=== PATIENT | female | born 1960 | race African-American/Black ===

== ENCOUNTER 2019-09-17 10:24 | Outpatient (CLI) | payer OTHER, SELFPAY ==
--- NOTE | ~2019-09-17 | DEXA_ITS ---
Bone Density Report Name: Fern Oliveira Age: 59 Sex: Female Ethnicity: White Date of : 1960 Indication: postmenopausal; height loss; hysterectomy; Referring Provider: NNAMDI MILLER Study: Bone densitometry was performed. Exam Date: September 17, 2019 Accession number: [id number] Bone Density: Region BMD T-score Z-score Classification AP Spine (L1-L4) 1.114 0.6 1.9 Normal Femoral Neck (Left) 0.870 0.2 1.4 Normal Total Hip (Left) 1.156 1.8 2.6 Normal Total Hip Bilateral Avg 1.171 1.9 2.7 Normal Femoral Neck (Right) 0.934 0.8 1.9 Normal Total Hip (Right) 1.184 2.0 2.8 Normal World Health Organization criteria for BMD impression classify patients as: Normal (T-score at or above -1.0), Osteopenia (T-score between -1.0 and -2.5), or Osteoporosis (T-score at or below -2.5). 10-year Fracture Risk: FRAX not reported because: All T-scores for Spine Total, Hip Total, Femoral Neck at or above -1.0 Previous Exams: Region Exam Age BMD T-score BMD Change BMD Change Date g/cm2 vs Baseline vs Previous AP Spine(L1-L4) 09/17/2019 59 1.114 0.6 0.012(1.1%) 0.012(1.1%) 09/06/2017 57 1.102 0.5 Total Hip(Left) 09/17/2019 59 1.156 1.8 -0.066(-5.4%)* -0.066(-5.4%)* 09/06/2017 57 1.222 2.3 Total Hip(Right) 09/17/2019 59 1.184 2.0 0.041(3.6%)* 0.041(3.6%)* 09/06/2017 57 1.143 1.6 *Denotes significance at 95% confidence level, LSC for AP Spine = 0.022 g/cm2, LSC for Total Hip = 0.027 g/cm2 Clinical Information Provided by Patient: Has used the following medications: Vitamin D Has the following medical conditions: Hysterectomy Patient maximum height was 64 Menopause Age: 47 No regular weight bearing exercise Drinks caffeinated beverages Onset of menses at age 14 Number of children 0 Impression: The patient has normal bone mass. The BMD for the Total Hip(Left) decreased, changing by -5.4% since the last DXA exam. Discussion: BONE DENSITY IS ABOVE THE MINIMUM DESIRABLE LEVEL AT ALL SKELETAL SITES TESTED. This patient?s bone mineral density is above the minimum desirable level (T-score -1.0 or better) at all sites measured. The patient should follow a healthful lifestyle (good nutrition with adequate calcium and vitamin D, and appropriate weight-bearing exercise). Follow-Up: Consider repeating this study in 3 to 4 years to reassess this patient's status, or sooner if there is some new clinical indication. Reported by:
--- NOTE | ~2019-09-17 | MM_ITS ---
EXAMINATION: MM screening [facility] BI w poli HISTORY: Screening mammogram TECHNIQUE: Craniocaudal and mediolateral oblique 3-D tomosynthesis images were obtained and synthetic 2-D images were generated. CAD analysis was submitted and interpreted. COMPARISON: 09/09/2018, 09/06/2017, 01/21/2015 BREAST PARENCHYMAL COMPOSITION: The breasts are almost entirely fatty. FINDINGS: There is a stable low-density mass in the anterior third of the slightly outer breast, cons idered benign given the lack of interval change. There is no evidence of suspicious mass, calcificati on, or architectural distortion to suggest malignancy in either breast. There has been no suspicious interval change. IMPRESSION: 1. No mammographic evidence of malignancy. 2. Recommend routine screening mammography in one year. BI-RADS Category 2: Benign finding(s). Reviewed, dictated and finalized at location A. OR PASTOR
== END 2019-09-17 10:25 | disposition home or self-care (01) ==
LOC: ANHIMG 10:28
PROVIDERS: PCP Family Medicine; Visit Provider Obstetrics & Gynecology
DX: Z12.31 Encounter for screening mammogram for malignant neoplasm of breast (principal); Z78.0 Asymptomatic menopausal state
CPT/HCPCS: 77063; 77067; 77080

== ENCOUNTER 2020-07-15 21:30 | Emergency (ER) | payer OTHER, SELFPAY ==
--- NOTE | ~2020-07-15 | XR_ITS ---
EXAMINATION: XR elbow LT min 3V DATE: 07/15/2020 22:15 INDICATION: Left elbow pain. TECHNIQUE: 4 views of left elbow were obtained. COMPARISON: None. FINDINGS: Bone alignment is normal. No fracture. Joint spaces are well maintained. There is no elbow joint effusion. IMPRESSION: 1. Normal left elbow. Reviewed, dictated and finalized at location A. AL WORK THERAPIST IMPRESSION: 1. Normal left elbow.
--- NOTE | ~2020-07-15 | XR_ITS ---
EXAMINATION: XR forearm LT 2V DATE: 07/15/2020 22:14 INDICATION: Left forearm pain. TECHNIQUE: 2 views of left forearm were obtained. COMPARISON: None. FINDINGS: Bone alignment is normal. No fracture. Joint spaces are well maintained. There is no elbow joint effusion. IMPRESSION: 1. Normal left forearm. Reviewed, dictated and finalized at location A. BREAKING MACHINE OPERATOR IMPRESSION: 1. Normal left forearm.
[2020-07-15 21:32] VITALS: BP 173/95; PULSE 97; RESP 18; TEMP 36.2; O2SAT 100
--- NOTE | 2020-07-15 21:39 | ED.EXTPRO ---
HPI - Extremity Problem General Chief complaint: Extremity Problem,Nontraumatic Stated complaint: pain on left arm Time Seen by Provider: 07/15/20 21:39 Source: patient Mode of arrival: ambulatory Limitations: no limitations History of Present Illness HPI Narrative: Patient is a 60-year-old female who presents for evaluation of swelling and pain in left upper extremity. Patient states she was sitting down when she suddenly felt a dull, aching pain in her left forearm, noticed there was swelling in the area right before her left elbow. Tender to palpation. No redness. There is mild bruising. Patient did not fall or injure it. No numbness or difficulty with movement. She denies any chest pain or shortness of breath. No fever or chills. No recent surgeries. Patient denies any history of blood clot. No recent infections. No recent long car or air travel, no recent surgeries. Patient is right-hand dominant. Related Data Home Medications Medication Instructions Recorded Confirmed No Home Medications 07/15/20 07/15/20 Allergies Allergy/AdvReac Type Severity Reaction Status Date / Time acetaminophen Allergy Mild RASH Verified 07/15/20 21:36 Review of Systems Review of Systems: Narrative: CONSTITUTIONAL: Denies fever, chills, or sweats. ENT: Denies rhinorrhea, congestion, sore throat, or otalgia. CARDIOVASCULAR: Denies chest pain, palpitations, or edema. RESPIRATORY: Denies cough or dyspnea. GASTROINTESTINAL: Denies abdominal pain, nausea, vomiting, or diarrhea. GENITOURINARY: Denies dysuria or hematuria. SKIN: Denies rash or itching. MUSCULOSKELETAL: Denies back pain, joint pain, reports left upper extremity pain, reports bruising just prior to the elbow NEUROLOGIC: Denies headache, numbness, or weakness. [facility] Past Medical History Medical History (Updated 07/15/20 @ 22:41 by Lori Carrasco MD) Arthritis Diverticulosis Elevated lipids Endometriosis Surgical History Surgical History H/O arthroscopy of knee H/O total hysterectomy History of breast biopsy History of knee surgery History of myomectomy Family History Family History Sibling Cerebrovascular accident Mother Family history of malignant neoplasm of bone Other Family history of malignant neoplasm of breast Social History Social History Smoking status: Never smoker Alcohol intake: current Exam Narrative: Exam Narrative: GENERAL: Awake, alert, conversant HEAD: Normocephalic, atraumatic. EYES: PERRLA and EOMI. ENT: Nares clear, no rhinorrhea or epistaxis. Mucous membranes moist. NECK: Supple. CHEST: No respiratory distress, breathing even and non labored HEART: Regular rate, sinus rhythm ABDOMEN:Non distended, non tender EXTREMITIES: Normal range of motion. No edema. Tenderness just proximal to the left elbow. No supracondylar tenderness. Radial pulse 2+. Intact sensation median, ulnar, radial nerve distribution. No ecchymoses. Small area of edema proximal to the left elbow. This is the tender location. No erythema. No abscess. No fluctuance. No wound. SKIN: Warm, dry, no rash. NEURO:No focal deficits. Alert and oriented x3 Course Vital Signs Vital signs: Vital Signs Temperature 36.2 C L 07/15/20 21:32 Pulse Rate 97 07/15/20 21:32 Respiratory Rate 18 07/15/20 21:32 Blood Pressure 173/95 H 07/15/20 21:32 Pulse Oximetry 100 07/15/20 21:32 Temperature 36.2 C L 07/15/20 21:32 Pulse Rate 88 07/15/20 22:55 Respiratory Rate 20 07/15/20 22:55 Blood Pressure 162/82 H 07/15/20 22:55 Pulse Oximetry 98 07/15/20 22:55 MDM - Extremity (Nontraumatic) MDM Narrative Medical decision making narrative: Patient presented for evaluation of left arm pain, patient does state that she appreciates a bump and swelling. She is not having
[2020-07-15 22:23] LABS: Basophils Percent Auto 0.3 % (0.2-1.2); Eosinophils Absolute Auto 0.4 K/mm3 (0-0.3); Eosinophils Percent Auto 4.9 % (0-4.4); Hematocrit 39.2 % (37.0-47.0); Hemoglobin 12.8 g/dL (12.0-15.0); Immature Granulocyte Absolute 0.02 K/mm3 (0.00-0.031); Immature Granulocyte Percent A 0.3 % (0-0.5); Lymphocytes Absolute Auto 2.33 K/mm3 (0.9-3.2); Lymphocytes Percent Auto 29.2 % (18.3-44.2); Mean Corpuscular HGB Conc 32.7 g/dl (32-36); Mean Corpuscular Hemoglobin 27.8 pg (26-34); Mean Corpuscular Volume 85.2 fl (80-100); Mean Platelet Volume 9.3 fl (7.4-10.4); Monocytes Absolute Auto 0.7 K/mm3 (0.1-0.6); Monocytes Percent Auto 8.3 % (2.6-8.5); Neutrophils Absolute Auto 4.6 K/mm3 (1.3-6.7); Platelet Count Result 284 k/mm3 (150-375); Red Cell Distribution Width 13.5 % (11.5-14.5)
[2020-07-15 22:36] LABS: Anion Gap 8 mmol/L (8-16); Blood Urea Nitrogen 18 mg/dL (7-17); Carbon Dioxide 30 mmol/L (22-30); Chloride 103 mmol/L (98-107); D Dimer 0.44 ug/mL (<0.48); Estimated CRCL calculation 76 ml/min; Estimated Glomerular Filt Rate > 60; Glucose 112 mg/dL (65-105); Sodium 141 mmol/L (137-145)
[2020-07-15] MEDS: ENOXAPARIN 120 MG/0.8 ML SYRINGE SUB-Q (22:50)
[2020-07-15 22:55] VITALS: BP 162/82; PULSE 88; RESP 20; O2SAT 98
== END 2020-07-15 22:56 | disposition home or self-care (01) ==
PROVIDERS: Emergency Provider Emergency Medicine; PCP Family Medicine
DX: M79.602 Pain in left arm (principal); M19.90 Unspecified osteoarthritis, unspecified site; N80.9 Endometriosis, unspecified; K57.90 Diverticulosis of intestine, part unspecified, without perforation or abscess without bleeding
CPT/HCPCS: 36415; 73080; 73090; 80048; 85025; 85380; 96372; 99283; J1650

== ENCOUNTER 2020-07-16 07:06 | Outpatient (CLI) | payer OTHER, SELFPAY ==
--- NOTE | ~2020-07-16 | US_ITS ---
US venous doppler UE LT DATE: 07/16/2020 08:00 INDICATION: Left arm pain TECHNIQUE: Real-time imaging and color flow imaging and Doppler analysis of the veins of the left upp er extremity COMPARISON: None FINDINGS: Left internal jugular, subclavian, axillary, brachial, basilic, cephalic, radial and ulnar veins are patent. No intraluminal thrombus is identified. IMPRESSION: No evidence of deep venous thrombosis of left upper extremity Reviewed, dictated and finalized at Location A. Reviewed, dictated and finalized at location A. NDWATER MONITORING TECHNICIAN
== END 2020-07-16 07:07 | disposition home or self-care (01) ==
LOC: ANHIMG 07:06
PROVIDERS: PCP Family Medicine; Visit Provider Family Medicine
DX: M79.602 Pain in left arm (principal)
CPT/HCPCS: 93971

== ENCOUNTER 2020-10-11 16:35 | Outpatient (CLI) | payer OTHER, SELFPAY ==
--- NOTE | ~2020-10-11 | MM_ITS ---
EXAMINATION: MM screening [facility] BI w poli HISTORY: Screening mammogram TECHNIQUE: Craniocaudal and mediolateral oblique 3-D tomosynthesis images were obtained and synthetic 2-D images were generated. CAD analysis was submitted and interpreted. COMPARISON: 09/17/2019, 09/09/2018, 09/06/2018 BREAST PARENCHYMAL COMPOSITION: The breasts are almost entirely fatty. FINDINGS: Again seen is a stable low-density mass in the anterior third of the slightly outer left br east, consistent with a benign finding. There is no evidence of suspicious mass, calcification, or ar chitectural distortion to suggest malignancy in either breast. There has been no suspicious interval change. IMPRESSION: 1. No mammographic evidence of malignancy. 2. Recommend routine screening mammography in one year. BI-RADS Category 2: Benign finding(s). Reviewed, dictated and finalized at location A. TRICAL ENGINEERING DRAFTSPERSON
== END 2020-10-11 16:36 | disposition home or self-care (01) ==
LOC: ANHIMG 16:39
PROVIDERS: PCP Family Medicine; Visit Provider Obstetrics & Gynecology
DX: Z12.31 Encounter for screening mammogram for malignant neoplasm of breast (principal)
CPT/HCPCS: 77063; 77067

== ENCOUNTER 2021-11-15 15:19 | Outpatient (CLI) | payer OTHER, SELFPAY ==
--- NOTE | ~2021-11-15 | MM_ITS ---
EXAMINATION: MM screening [facility] BI w poli HISTORY: Screening mammogram TECHNIQUE: Craniocaudal and mediolateral oblique 3-D tomosynthesis images were obtained and synthetic 2-D images were generated. CAD analysis was submitted and interpreted. COMPARISON: 10/11/2020, 09/17/2019, 09/09/2018 BREAST PARENCHYMAL COMPOSITION: There are scattered areas of fibroglandular density. FINDINGS: There is no suspicious mass, calcification, or architectural distortion to suggest malignan cy in either breast. There has been no suspicious interval change. IMPRESSION: 1. No mammographic evidence of malignancy. 2. Recommend routine screening mammography in one year. BI-RADS Category 1: Negative Reviewed, dictated and finalized at location A.
== END 2021-11-15 15:20 | disposition home or self-care (01) ==
PROVIDERS: PCP Family Medicine; Visit Provider Obstetrics & Gynecology
DX: Z12.31 Encounter for screening mammogram for malignant neoplasm of breast (principal)
CPT/HCPCS: 77063; 77067

== ENCOUNTER 2022-02-20 12:56 | Outpatient (CLI) | payer OTHER, SELFPAY ==
--- NOTE | ~2022-02-20 | DEXA_ITS ---
Bone Density Report Name: LEVY CELIS Age: 62 Sex: Female Ethnicity: White Date of : 1960 Indication: postmenopausal; screening for osteoporosis; height loss; hysterectomy; Referring Provider: NNAMDI MILLER Study: Bone densitometry was performed. Exam Date: February 20, 2022 Accession number: [id number] Bone Density: Region BMD T-score Z-score Classification AP Spine(L1-L4) 1.106 0.5 2.0 Normal Femoral Neck (Left) 0.856 0.1 1.3 Normal Total Hip (Left) 1.070 1.1 2.0 Normal Femoral Neck (Right) 0.953 0.9 2.2 Normal Total Hip (Right) 1.075 1.1 2.0 Normal Total Hip Mean 1.073 1.1 2.0 Normal World Health Organization criteria for BMD impression classify patients as: Normal (T-score at or above -1.0), Osteopenia (T-score between -1.0 and -2.5), or Osteoporosis (T-score at or below -2.5). 10-year Fracture Risk: FRAX not reported because: All T-scores for Spine Total, Hip Total, Femoral Neck at or above -1.0 Clinical Information Provided by Patient: Has the following medical conditions: Hysterectomy Patient maximum height was 64 Menopause Age: 47 No regular weight bearing exercise Drinks caffeinated beverages Onset of menses at age 14 Number of children 0 Impression: The patient has normal bone mass. Discussion: BONE DENSITY IS ABOVE THE MINIMUM DESIRABLE LEVEL AT ALL SKELETAL SITES TESTED. This patient?s bone mineral density is above the minimum desirable level (T-score -1.0 or better) at all sites measured. The patient should follow a healthful lifestyle (good nutrition with adequate calcium and vitamin D, and appropriate weight-bearing exercise). Follow-Up: Consider repeating this study in 5 years or sooner if there is some new clinical indication. Reported by: JENN on 02/20/2022 1:45:00 PM. Reviewed, dictated and finalized at location [place]
== END 2022-02-20 12:57 | disposition home or self-care (01) ==
LOC: ANHIMG 12:57
PROVIDERS: PCP Family Medicine; Visit Provider Obstetrics & Gynecology
DX: Z78.0 Asymptomatic menopausal state (principal)
CPT/HCPCS: 77080

== ENCOUNTER 2022-11-22 01:32 | Day surgery (SDC) | payer OTHER, SELFPAY ==
[2022-11-09 15:57] VITALS: BMI 45.3
[2022-11-22 08:40] VITALS: BP 148/88; PULSE 73; RESP 18; TEMP 35.7; O2SAT 100; BMI 43.4
[2022-11-22] MEDS: LACTATED RINGERS 1,000 ML 150 ML IV CONT (08:59)
--- NOTE | 2022-11-22 09:19 | WPDANESEPPF ---
Anes - Initial Pre Proc Eval Procedure: Operation Date: 11/22/22 10:00 Proposed Procedures p Screening Colonoscopy - Ted Patel MD Date/Time: 11/22/22 09:19 Surgeon: Ted Patel MD Pre Op Diagnosis: neoplasm screening Patient Data Age: 62 Gender: F Height: 1.63 m Weight: 114.7 kg Last Vital Signs Temp 96.2 F L 11/22/22 08:40 Pulse 73 11/22/22 08:40 Resp 18 11/22/22 08:40 BP 148/88 H 11/22/22 08:40 Pulse Ox 100 11/22/22 08:40 O2 Del Method Room Air 11/22/22 08:40 Allergies Allergy/AdvReac Type Severity Reaction Status Date / Time acetaminophen Allergy Mild RASH Verified 11/22/22 08:44 Patient hx anesthesia problems: none Family hx anesthesia problems: none Results Review: All pre-operative results and documents have been reviewed as part of the pre-operative evaluation. [facility] Past Medical History Medical History Arthritis Diverticulosis Elevated lipids Endometriosis Surgical History Surgical History (Updated 10/25/22 @ 10:41 by Juliana Ramsay CMA) H/O arthroscopy of knee H/O total hysterectomy History of breast biopsy History of cholecystectomy History of knee surgery History of myomectomy Family History Family History Sibling Cerebrovascular accident Mother Family history of malignant neoplasm of bone Other Family history of malignant neoplasm of breast Social History Social History Smoking status: Never smoker Alcohol intake: current Substance use type: does not use Living arrangements: with family Spiritual care concerns: No Anes - Eval Final PreProcedure Day of Procedure 11/22/22 09:19 Patient weight: morbidly obese Airway: Mallampati scale class II ASA classification: III Anesthesia type and monitoring: general GIVS and standard monitoring Results Review: All pre-operative results and documents have been reviewed as part of the pre-operative evaluation. Informed Consent: The patient's anesthetic plan and its attendant risks and benefits were discussed with the patient/family/POA. Questions were solicited and answers provided to the satisfaction of the patient/family/POA.
--- NOTE | 2022-11-22 09:30 | P.HP_ITS ---
History of Present Illness History of Present Illness Consent: Risks, benefits, and alternatives have been discussed and questions answered. Patient agrees to proceed with procedure. Chief complaint: neoplasm screening Narrative: Fern Oliveira is a 62 year old female Presents for screening colonoscopy. Patient's current weight appetite and bowel movements are normal. Patient denies abdominal pain. She has had no bleeding. Family history is significant her sister mother both have had colon polyps. Patient had a previous colonoscopy 10 years ago that was unremarkable. Review of Systems Review of Systems: Review of systems is noncontributory. [facility] Past Medical History Medical History (Updated 11/22/22 @ 09:31 by Ted Patel MD) Arthritis Diverticulosis Elevated lipids Endometriosis Surgical History Surgical History (Updated 10/25/22 @ 10:41 by Juliana Ramsay [facility]) H/O arthroscopy of knee H/O total hysterectomy History of breast biopsy History of cholecystectomy History of knee surgery History of myomectomy Family History Family History Sibling Cerebrovascular accident Mother Family history of malignant neoplasm of bone Other Family history of malignant neoplasm of breast Social History Social History Smoking status: Never smoker Alcohol intake: current Substance use type: does not use Living arrangements: with family Spiritual care concerns: No Meds Home Medications and Allergies Allergies Allergy/AdvReac Type Severity Reaction Status Date / Time acetaminophen Allergy Mild RASH Verified 11/22/22 08:44 Vital Signs Vital Signs - 24 hr 11/22/22 08:40 Temperature 96.2 F L Pulse Rate 73 Respiratory Rate 18 Blood Pressure 148/88 H Pulse Oximetry 100 Oxygen Delivery Room Air Exam Narrative: Physical exam reveals patient to be alert. Vital signs stable. HEENT exam is unremarkable. Patient is anicteric. Lungs are clear to auscultation and percussion. Heart is without murmur or extra sounds. Abdomen bowel sounds present soft nontender with no organomegaly. Digital external rectal exam is normal. Assessment and Plan Assessment and plan (1) Family history of colonic polyps: Code(s): Z83.71 - Family history of colonic polyps Status: Acute Assessment and Plan: Patient has a family history of colon polyps. Plan for surveillance colonoscopy now and consider this at 5-7 year intervals in the future.
[2022-11-22 10:32] VITALS: BP 115/74; PULSE 80; RESP 21; O2SAT 97
[2022-11-22 10:42] VITALS: BP 126/80; PULSE 70; RESP 24; O2SAT 99
[2022-11-22 10:52] VITALS: BP 131/89; PULSE 71; RESP 14; O2SAT 99
== END 2022-11-22 10:57 | disposition home or self-care (01) ==
PROVIDERS: Visit Provider Internal Medicine Gastroenterology
PROC: 0DJD8ZZ Inspection of Lower Intestinal Tract, Via Natural or Artificial Opening Endoscopic (ICD-10-PCS; CPT 45378; principal; 2022-11-22 10:00)
DX: Z12.11 Encounter for screening for malignant neoplasm of colon (principal); D12.2 Benign neoplasm of ascending colon; K57.30 Diverticulosis of large intestine without perforation or abscess without bleeding; K64.8 Other hemorrhoids; Z83.71 Family history of colonic polyps; E66.01 Morbid (severe) obesity due to excess calories; Z68.41 Body mass index [BMI] 40.0-44.9, adult
CPT/HCPCS: 45385; 88305; J2704; J7120

== ENCOUNTER 2023-01-01 15:19 | Outpatient (CLI) | payer OTHER, SELFPAY ==
--- NOTE | ~2023-01-01 | MM_ITS ---
EXAMINATION: MM screening [facility] BI w poli HISTORY: Screening mammogram TECHNIQUE: Craniocaudal and mediolateral oblique 3-D tomosynthesis images were obtained and synthetic 2-D images were generated. CAD analysis was submitted and interpreted. COMPARISON: 11/15/2021, 10/11/2020, 09/17/2019 BREAST PARENCHYMAL COMPOSITION: There are scattered areas of fibroglandular density. FINDINGS: A chronic, stable mass in the anterior left breast is consistent with a benign finding. No suspicious mass, calcification, or architectural distortion are identified in either breast to sugges t malignancy. There has been no suspicious interval change. IMPRESSION: 1. No mammographic evidence of malignancy. 2. Recommend routine screening mammography in one year. BI-RADS Category 2: Benign finding(s). Reviewed, dictated and finalized at location A.
== END 2023-01-01 15:20 | disposition home or self-care (01) ==
PROVIDERS: Visit Provider Obstetrics & Gynecology
DX: Z12.31 Encounter for screening mammogram for malignant neoplasm of breast (principal)
CPT/HCPCS: 77063; 77067

== ENCOUNTER 2023-05-11 22:52 | Emergency (ER) | payer OTHER, SELFPAY ==
--- NOTE | ~2023-05-11 | XR_ITS ---
XR shoulder LT min 2V 05/12/2023 02:04 Indication: Left shoulder pain Procedure: 4 views left shoulder Comparison: No prior studies for comparison. Findings: There is osteoarthritis of the left acromioclavicular joint. No acute fracture or traumatic malalignment. No soft tissue abnormality. No foreign bodies. Impression: 1: Mild osteoarthritis of the left acromioclavicular joint. Reviewed, dictated and finalized at location A. Impression: 1: Mild osteoarthritis of the left acromioclavicular joint.
--- NOTE | 2023-05-11 22:54 | ECG_ITS ---
Measurements Intervals [place] Rate: 87 P: 18 HI: 144 QRS: -8 QRSD: 82 T: 9 QT: 349 QTc: 421 Interpretive Statements SINUS RHYTHM DELAYED PRECORDIAL R/S TRANSITION VOLTAGE CRITERIA FOR LVH BORDERLINE T WAVE ABNORMALITY- ANT/INF LEADS BORDERLINE ECG COMPARED TO ECG 09/28/2018 23:41:55 NO SIGNIFICANT CHANGES Electronically Signed On 05-12-2023 7:03:51 CDT by Arpit Bliss D.O.
[2023-05-11 22:58] VITALS: BP 157/104; PULSE 86; RESP 19; TEMP 36.4; O2SAT 100
[2023-05-12 01:01] VITALS: BP 184/84; PULSE 80; RESP 19; O2SAT 99
--- NOTE | 2023-05-12 01:35 | ED.EXTPRO ---
HPI - Extremity Problem General Chief complaint: Extremity Problem,Nontraumatic Stated complaint: left arm pain Time Seen by Provider: 05/12/23 01:08 History of Present Illness HPI Narrative: Patient is a 63-year-old female presenting with left arm pain. States that it started earlier this evening. It is painful from her shoulder to her left elbow. It is worse with movement and positional changes. States that earlier this week she had neck pain related to muscle spasms from sleeping the wrong way. States that this has improved but now she is having shoulder pain. Denies chest pain, shortness of breath, palpitations, lightheadedness, diaphoresis, nausea, numbness or weakness. Related Data Allergies Allergy/AdvReac Type Severity Reaction Status Date / Time acetaminophen Allergy Mild RASH Verified 05/11/23 22:53 Review of Systems Review of Systems: All systems reviewed & are unremarkable except as noted in HPI and below PMFSH Past Medical History Medical History Arthritis Diverticulosis Elevated lipids Endometriosis Surgical History Surgical History H/O arthroscopy of knee H/O total hysterectomy History of breast biopsy History of cholecystectomy History of knee surgery History of myomectomy Family History Family History Sibling Cerebrovascular accident Mother Family history of malignant neoplasm of bone Other Family history of malignant neoplasm of breast Social History Social History Smoking status: Never smoker Alcohol intake: current Substance use type: does not use Living arrangements: with family Spiritual care concerns: No Exam Narrative: GENERAL: Well-appearing and in no acute distress. Pleasant and cooperative HEAD: Normocephalic, atraumatic. EYES: PERRLA and EOMI. ENT: Grossly unremarkable NECK: Supple. No midline tenderness, some tenderness of upper trapezius with palpation CHEST: Clear to auscultation. No respiratory distress. HEART: Regular rate and rhythm. Normal peripheral pulses. ABDOMEN: Nondistended EXTREMITIES: Abduction of left shoulder is limited secondary to pain, distal ROM intact, radial pulses 2+ bilaterally, tender along anterior glenohumeral joint SKIN: Warm, dry, no rash. NEURO: No focal deficits. Alert and oriented x3. PSYCH: Normal mood and affect. Course Vital Signs Vital signs: Vital Signs Temperature 97.5 F L 05/11/23 22:58 Pulse Rate 86 05/11/23 22:58 Respiratory Rate 19 05/11/23 22:58 Blood Pressure 157/104 H 05/11/23 22:58 Pulse Oximetry 100 05/11/23 22:58 Oxygen Delivery Room Air 05/11/23 22:58 Temperature 97.5 F L 05/11/23 22:58 Pulse Rate 80 05/12/23 03:30 Respiratory Rate 12 05/12/23 03:30 Blood Pressure 132/89 05/12/23 03:30 Pulse Oximetry 97 05/12/23 03:30 Oxygen Delivery Room Air 05/11/23 22:58 MDM - Extremity (Nontraumatic) MDM Narrative Medical decision making narrative: Patient is a 63-year-old female presenting with left shoulder pain. Vitals are stable. Exam is remarkable for shoulder tenderness and decreased ROM secondary to pain. Tenderness does extend into her trapezius. She denies any chest pain, shortness of breath, or systemic symptoms. Her pain is elicited with positional changes and moving the left arm. EKG was obtained from triage and shows normal sinus rhythm, no ST elevations or depressions. I do not suspect a cardiac cause for her left shoulder pain. X-rays show no acute abnormalities. Patient was given a dose of ibuprofen and Flexeril and states that this has significantly helped. We will place her in a sling for comfort and discussed appropriate supportive care. Advised PCP and orthopedic follow-up. Appropriate return precautions given
[2023-05-12] MEDS: IBUPROFEN 400 MG TABLET 800 MG PO (03:05)
[2023-05-12] MEDS: CYCLOBENZAPRINE HCL 10 MG TABLET PO (03:06)
[2023-05-12 03:30] VITALS: BP 132/89; PULSE 80; RESP 12; O2SAT 97
== END 2023-05-12 03:30 | disposition home or self-care (01) ==
PROVIDERS: Emergency Provider Emergency Medicine; PCP Family Medicine
DX: M25.512 Pain in left shoulder (principal); M19.90 Unspecified osteoarthritis, unspecified site; Z90.710 Acquired absence of both cervix and uterus; Z90.49 Acquired absence of other specified parts of digestive tract; R94.31 Abnormal electrocardiogram [ECG] [EKG]; M19.012 Primary osteoarthritis, left shoulder
CPT/HCPCS: 73030; 93005; 99283; A4565; A9270

== ENCOUNTER 2024-01-16 15:43 | Outpatient (CLI) | payer OTHER, SELFPAY ==
--- NOTE | ~2024-01-16 | MM_ITS ---
EXAMINATION: MM screening [facility] BI w poli HISTORY: Screening TECHNIQUE: Craniocaudal and mediolateral oblique 3-D tomosynthesis images were obtained and synthetic 2-D images were generated. CAD analysis was submitted and interpreted. COMPARISON: No prior mammogram is available for comparison at this institution. BREAST PARENCHYMAL COMPOSITION: There are scattered areas of fibroglandular density. FINDINGS: There is no evidence of suspicious mass, calcification, or architectural distortion to sugg est malignancy in either breast. There has been no suspicious interval change. IMPRESSION: 1. No mammographic evidence of malignancy. 2. Recommend routine screening mammography in one year. BI-RADS Category 1: Negative Reviewed, dictated and finalized at location B.
== END 2024-01-16 15:44 | disposition home or self-care (01) ==
PROVIDERS: PCP Family Medicine; Visit Provider Obstetrics & Gynecology
DX: Z12.31 Encounter for screening mammogram for malignant neoplasm of breast (principal)
CPT/HCPCS: 77063; 77067

== ENCOUNTER 2025-03-02 08:30 | Outpatient (CLI) | payer OTHER, SELFPAY ==
--- NOTE | ~2025-03-02 | MM_ITS ---
EXAMINATION: MM screening acacia BI w poli HISTORY: Screening TECHNIQUE: Craniocaudal and mediolateral oblique 3-D tomosynthesis images were obtained and synthetic 2-D images were generated. CAD analysis was submitted and interpreted. COMPARISON: Comparison to multiple prior studies sequentially, with oldest reviewed study dated 09/09. BREAST PARENCHYMAL COMPOSITION: Not dense: There are scattered areas of fibroglandular density. FINDINGS: There is no evidence of suspicious mass, calcification, or architectural distortion to sugg est malignancy in either breast. There has been no suspicious interval change. IMPRESSION: 1. No mammographic evidence of malignancy. 2. Recommend routine screening mammography in one year. BI-RADS Category 1: Negative Reviewed, dictated and finalized at location []
--- OUTSIDE RECORDS SUMMARY | 2025-03-02 08:39 | XMS_ITS | Clinical Summary ---
Author Organization [facility] Medical Office Building [address] Address [address] [place] [address] Care Team Providers Care Manager Of Corporate Communications Name Role Phone Lakeshia Cunningham MD Primary Care Provide r Yunior Beltran Unavailable [phone] Allergies Active Allergy Reactions Criticality Noted Date Comments Acetaminophen Rash Medium 01/29/2018 Medications diphenoxylate-a tropine (LOMOTIL) 2.5-0.025 mg per tabletIndicatio ns:diarrhea Take 1 tablet by mouth 4 (four) times a day as needed for diarrhea 20 tablet 4 Active Belsomra 10 mg tablet 0 4 Active furosemide (LASIX) 40 mg tablet Take 1 tablet (40 mg total) by mouth daily for 7 days 7 tablet 4 Active naproxen sodium 220 mg capsule Take 220 mg by mouth every 12 (twelve) hours Active triamcinolone (KENALOG) 0.1 % ointment Apply topically 2 (two) times a day as needed for irritation or rash 15 g 4 Active promethazine-DM (PROMETHAZINE-D M) 1.25-3 mg/mL syrupIndication s:Cough Take 5 mL by mouth 2 (two) times a day as needed for cough 118 mL 4 Active albuterol HFA (PROVENTIL HFA,VENTOLIN HFA,PROAIR HFA) 90 mcg/actuation inhaler INHALE 2 PUFFS EVERY 6 HOURS NEEDED FOR WHEEZING 6.7 each 1 5 Active diazePAM (VALIUM) 10 mg tablet 2 5 Active eszopiclone (LUNESTA) 2 mg tablet Take 1 tablet (2 mg total) by mouth nightly 0 5 Active HYDROcodone-harman taminophen (NORCO) 7.5-325 mg per tablet 0 5 Active Active Problems Problem Noted Date Diagnosed Date Encounter for screening colonoscopy 05/07/2024 Personal history of colonic polyps 05/07/2024 Encounter for completion of form with patient Assessment & Plan (05/05/2024 8:37 AM CDT): Forms for work signed, copied and original returned to patient Bilateral swelling of feet 10/21/2023 Assessment & Plan (10/21/2023 5:07 PM AUTOMATIC FURNACE OPERATOR): New concern Not at goal Likely from recent infection causing low protein Will give lasix for symptomatic relief Ordered cmp, probnp(although low suspicion of heart etiology) urinalyisis albumin cr urine ratio F/u in 2 weeks Recommend compression and elevation Diarrhea 10/14/2023 Assessment & Plan (10/21/2023 5:06 PM AUTOMATIC FURNACE OPERATOR): Resolved after antibiotics Assessment & Plan (10/14/2023 11:09 AM AUTOMATIC FURNACE OPERATOR): New concern Not at goal Likely infectious Will get stool culture, c diff and ova parasite Will get ct abdomen rule out obstruction over flow. Low suspicion Cmp to monitor electrolytes F/u in 1 week. Continue with bland diet and pedialyte If no improvement will start antibiotics Incomplete tear of left rotator cuff 09/12/2023 Arthritis of left acromioclavicular joint 2023 Biceps tendonitis on left 09/12/2023 Impingement syndrome of left shoulder 09/12/2023 Rotator cuff tear arthropathy of left shoulder 0 08/30/2023 Assessment & Plan (08/30/2023 10:17 AM AUTOMATIC FURNACE OPERATOR): Patient is scheduled for surgery on 10/01/[address] Walton Follow up with ortho as scheduled Continue with sling to left arm as directed by ortho Chronic left shoulder pain 07/01/2023 Assessment & Plan (07/01/2023 8:45 AM AUTOMATIC FURNACE OPERATOR): New concern Not at goal S/p physical therapy and aleve Continue with heat 20min on and off Will order MRI and recommend following up with ortho F/u prn Chronic cough 02/13/2023 Assessment & Plan (02/13/2023 2:39 PM CDT): new Likely post viral cough syndrome No other systemic symptoms Will get a chest xray although low suspicion for pneumonia Sent astepro to help with any post nasal drip Continue allergy medication F/u prn, if no improvement will consider sending to pulmonary given already completed 2 courses of antibiotics and steroid Acute pain of right knee 04/30/2022 Assessment & Plan (04/30/2022 8:31 AM CDT): 2/2 mechanical fall. continue to ice it and take aleve as needed and if it gets worse she will call and get xrays. Gallstones 04/10/2022 Assessment & Plan (04/30/2022 8:28 AM CDT): Going for gallbladder removal She understands that no procedure is risk-free but accepts those as discussed during OV and wishes to proceed. She was instructed to contact us if any new symptoms or problems arise between now and surgery date. According to the RCRI, the patient's number of risk factors stratifies patient to class II, which carries a 6% risk of major cardiovascular complications She is medically optimized for surgery Assessment & Plan (04/24/2022 9:06 AM CDT): The patient has symptomatic cholelithiasis. We will set her up for cholecystectomy. Postoperative restrictions and time off of work have been discussed. Postoperative issues like post cystectomy diarrhea have also been discussed. All questions answered. Pre-admission testing will be sent in. Consent to be obtained. Biliary colic 04/10/2022 Assessment & Plan (06/14/2022 11:40 AM CDT): We will give the patient a work release. No heavy lifting for another 2 weeks. No submerging incision for another week. Patient will continue to advance her diet as tolerates. She will call back with any further questions or concerns. Nausea without vomiting 04/10/2022 Tinea 03/14/2022 Assessment & Plan (04/30/2022 8:27 AM CDT): Improving Will deal with GI issues and if it still has not resolved will consider dermatology referral Assessment & Plan (03/14/2022 12:20 PM CDT): Start ketoconazole bid for 2 weeks F/u prn Dyspepsia 01/17/2022 Assessment & Plan (03/14/2022 12:18 PM CDT): No improvement Going for EGD in March Continue following with GI Chronic constipation 01/17/2022 Epigastric pain 12/08/2021 Assessment & Plan (01/10/2022 8:40 AM CDT): h pylori test negative Increase the omeprazole to 40mg Referral to GI for possible endoscopy Assessment & Plan (12/14/2021 2:53 PM CDT): Likely dyspepsia h pylori test ordered Will also do cbc cmp lipase and amylase If h pylori test is negative will do a trial of ppi, if positive will treat F/u in 2 months Assessment & Plan (12/08/2021 9:15 AM CDT): Likely MSK EKG in office normal sinus rhythm F/u in 1 week If no improvement will consider imaging Encounter for wellness examination 04/27/2021 Assessment & Plan (05/05/2024 8:38 AM CDT): Labs reviewed and discussed Colonoscopy: referral given Pap smear: follows with ob Mammo: follows with ob, completed and will get records Zoster declines Flu-goes to [place] Tdap given F/u in 1 year for annual Assessment & Plan (05/01/2023 8:20 AM CDT): Labs reviewed Colonoscopy: up to date Pap smear: follows with ob Mammo: follows with ob Zoster declines Flu-goes to [facility] F/u in 1 year for annual Assessment & Plan (04/30/2022 8:27 AM CDT): Labs reviewed Colonoscopy: up to date Pap smear: follows with ob Mammo: follows with ob F/u in 1 year for annual Assessment & Plan (04/27/2021 8:44 AM CDT): Routine labs ordered Reviewed vaccines needed, patient wants to hold off on vaccine. Patient states had Pap smear September of 2020 and was normal. Patient states had colonoscopy in 2013 and was recommended to have repeat in 10 years. Class 3 severe obesity due t o excess calories without serious comorbidity with body mass index (BMI) of 50.0 to 59.9 in adult 04/27/2021 Assessment & Plan (05/05/2024 8:39 AM CDT): She was counseled on the importance of maintaining a healthy weight and the risks of obesity. Weight loss recommended. Encourage 150min/ week of exercise Encourage 1500 calories in a day for weight loss Assessment & Plan (04/27/2021 8:39 AM CDT): Lipid panel ordered Discussed risk of possibly starting a statin if lipid panel is elevated. Patient agreed to try diet and exercise 1st and then returned to re-evaluate in 3 months if panel with elevated. She was counseled on the importance of maintaining a healthy weight and the risks of obesity. Weight loss recommended. Other tear of medial meniscu s, current injury, left knee, initial encounter 03/19/2018 Overview (03/19/2018): Added automatically from request for surgery [id number] Resolved Problems Problem Noted Date Diagnosed Date Resolved Date Preoperative clearance 08/30/202305/02 Assessment & Plan (08/30/2023 10:23 AM AUTOMATIC FURNACE OPERATOR): Pt comes in at behest of Dr. Walton for preoperative evaluation. She will be having left shoulder rotator cuff repair She denies chest pain, palpitations, dyspnea on exertion, or any other symptoms. She understands that no procedure is risk-free but accepts those as discussed during OV and wishes to proceed. She was instructed to contact us if any new symptoms or problems arise between now and surgery date. According to the RCRI, the patient's number of risk factors stratifies patient to class 1, which carries a 3.9% risk of major cardiovascular complications. Patient reports she has never had any complications with or post anesthesia. States she has never been told she has difficult or narrow airway. By medical standpoint, patient is medically able and cleared for upcoming surgery. Immunizations Immunization Administration Dates Next Due Influenza, Quadrivalent, Spl it, Preservative Free, Intramuscular 05/26/2023,05/30/2021 Influenza, Unspecified 05/05/2024(Deferr ed: Patient Refused),06/11/2023,05/30/2021, 021(Deferred: Patient Refused),05/12/2020 Moderna SARS-CoV-2 Monovalen t Vaccination (12+ YRS) 08/10/2021 Moderna Sars-cov-2 Bivalent Vaccine 50 Mcg/0.5 mL (12+ YRS)-Blue/Treadwell 05/01/2022 Tdap 05/05/2024 Surgical History Surgery Date Site/Laterality Comments HYSTERECTOMY MYOMECTOMY CYST REMOVAL LAPAROSCOPY CYST REMOVAL MYOMECTOMY 08/19/1997 - 08/18/1998 CYST REMOVAL 08/19/1999 - 08/18/2000 Right ENDOMETRIAL ABLATION 08/19/2000 - 08/18/2001 BREAST BIOPSY Left MENISCUS SURGERY Left CHOLECYSTECTOMY ABDOMINAL SURGERY 06/08/22 SHOULDER ARTHROSCOPY COLONOSCOPY 11/04/2024 Medical History Medical History Date Comments Diverticulosis GERD (gastroesophageal reflux disease) Family History Medical History Relation Name Comments Heart disease Brother Willy Stroke Brother Willy Cancer Father Mariano Cancer Mother Ayaka Cancer Other Heart disease Other Stroke Other Relation Name Status Comments Brother Willy Father Mariano Mother Ayaka Other Social History Tobacco Use Types Packs/Day Years Used Date Smoking Tobacco: Never Smokeless Tobacco: Never Alcohol Use Standard Drinks/Week Comments Yes 0 (1 standard drink = 0.6 oz pur e alcohol) occasional AUDIT-C Answer Date Recorded Q1: How often do you have a drink containing alc ohol? Monthly or less 11/04/2024 Q2: How many drinks containi ng alcohol do you have on a typical day when you are drinking? 1 or 2 11/04/2024 Q3: How often do you have si x or more drinks on one occasion? Never 11/04/2024 PHQ-2 Answer Date Recorded PHQ-2 Total Score (If total score is 3 or more points, staff should administer the PHQ-9) 0 05/05/2024 Personal Safety Answer Date Recorded Have you ever been in or are you currently in a harmful physical or emotional relationship or is someone making you feel afraid or unsafe? Denies 11/04/2024 Comments No Sex and Gender Information Value Date Recorded Sex Assigned at Not on file Legal Sex Female 12:34 PM AUTOMATIC FURNACE OPERATOR Gender Identity Not on file Sexual Orientation Not on file Obstetrics History Last Filed Vital Signs Vital Sign Reading Time Taken Comments Blood Pressure 155/84 11/04/2024 10:00 AM CDT Pulse 66 11/04/2024 10:00 AM CDT Temperature 36.4 C (97.5 F) 11/04/2024 8:51 AM CDT Respiratory Rate 16 11/04/2024 10:00 AM CDT Oxygen Saturation 100% 11/04/2024 10:00 AM CDT Inhaled Oxygen Concentration - - Weight 117.9 kg (260 lb) 11/04/2024 8:51 AM CDT Height 162.6 cm (5' 4) 11/04/2024 8:51 AM CDT Body Mass Index 44.63 11/04/2024 8:51 AM CDT Plan of Treatment Health Maintenance Due Date Last Done Comments Osteoporosis Screening-Bone Density Scan 1960 Zoster Vaccine (1 of 2) 02/07/2012 Covid-19 Vaccine ( season) 2024 07/03/2023, 05/01/2022, 08/10/2021, Additional history exists Breast Cancer Screening-Mammogram 01/15/2025 01/16/2024, 01/01/2023, 10/11/2020, Additional history exists Influenza Vaccine (#1) 2025 , 05/26/2023, 05/30/2021, Additional history exists Depression Screening 05/05/2025 05/05/2024, 10/21/2023, 10/14/2023, Additional history exists Regular Well Visit/Exam 18-64 05/05/2025 05/05/2024, 05/01/2023, 04/30/2022, Additional history exists Colon Cancer Screening-Colonoscopy 11/04/2029 11/04/2024, 07/12/2014 DTaP/Tdap/Td Vaccine (2 - Td or Tdap) 05/05/2034 05/05/2024 Hepatitis C Screening Completed 04/29/2021 Hepatitis B Screening Completed 05/02/2024 Colon Cancer Screening-CT Colonography Discontinued 11/04/2024, 07/12/2014 Colon Cancer Screening-DNA Stool Discontinued 11/04/2024, 07/12/2014 Colon Cancer Screening-FIT Discontinued 11/04/2024, Colon Cancer Screening-Sigmoidoscopy Discontinued 11/04/2024, 07/12/2014 Pneumococcal vaccine <65 Aged Out No longer eligible based on patient's age to complete this topic Medical Devices Implanted Type Area Remediation Consultant Device Identifier Shelf Expiration Date Model / Serial / Lot Depuy Mitek Healix Advance Br Orthocord 6.5mm 3 [place] Suture Sterile Latex Free [id number] - [id number] Implanted:Qty: 1 on 10/01/2023 by Jean Walton MD at [facility] Left: Shoulder Depuy Mitek 12/16/2026 [id number] / / [id number] [employer] Swivelock C 5.5mm 19.1mm Closed Eyelet Vent [place] Suture [id number] - [id number] Implanted:Qty: 1 on 10/01/2023 by Jean Walton MD at [facility] Left: Shoulder [employer] 12/16/2026 [id number] / / [id number] [employer] Fiberlink Arthrex Suturetape 1.3mm Tape Suture Nonabsorbable Ar-[id number] - [id number] Implanted:Qty: 2 on 10/01/2023 by Jean Walton MD at [facility] Left: Shoulder [employer] 04/18/2028 [id number] / / Procedures Procedure Name Priority Date/Time Associated Diagnosis Comments COLONOSCOPY 11/04/2024 8:47 AM CDT SCREENING MAMMOGRAM BILATERAL W GERARDO Schedule Routine, Read Routine (OP Routine) 01/16/2024 HEPATITIS C ANTIBODY Routine 04/29/2021 8:38 AM CDT Encounter for wellness examination from Last 3 Months or Most Recently Relevant to Health Maintenance Results * Colonoscopy (11/04/2024 8:47 AM CDT) Anatomical Region Laterality Modality Other Narrative Procedure Note Rolan Ramsey MD - 11/04/2024 8:47 AM CDT [facility] Patient Name: Fern Oliveira Procedure Date: 11/04/2024 8:47 AM Date of : 1960 Admit Type: Outpatient Age: 64 Gender: Female Attending MD: Rolan Ramsey M.D. Room: [facility] ENDOSCOPY ROOM 1 Note Status: Finalized Patient Profile: This is a 64 year old female. History of polyps 3 years ago at outside facility. Reports of the colonoscopy is not available for review. No family history of colon cancer. Procedure: Colonoscopy Indications: Surveillance: Personal history of colonic polyps (unknown histology) on last colonoscopy 3 yearsago, Last colonoscopy: 2019 Referring MD: Floyd Ray.D. Providers: Rolan Ramsey M.D. Impression: - One 2 mm polyp in the ascending colon, removedwith a jumbo cold forceps. Resected and retrieved. - Diverticulosis in the sigmoid colon. - Internal hemorrhoids. Recommendation: - Await pathology results. - Repeat colonoscopy in 5 years for surveillance. - Continue present medications. Medicines: Monitored Anesthesia Care Complications: No immediate complications. Estimated Blood Loss: Estimated blood loss: none. Procedure: Pre-Anesthesia Assessment: - Prior to the procedure, a History and Physicalwas performed, and patient medications and allergieswere reviewed. The patient's tolerance of previous anesthesia was also reviewed. The risks andbenefits of the procedure and the sedation options and risks were discussed with the patient. All questions were answered, and informed consent was obtained. Prior Anticoagulants: The patient has taken noanticoagulant or antiplatelet agents. ASA Grade Assessment: Per anesthesia note and evaluation. After reviewing the risks and benefits, the patient was deemed in satisfactory condition to undergo the procedure. The benefits, risks and alternatives of theprocedure and sedation were discussed and informed consentwas obtained. All questions were answered. Please referto the signed informed consent document in the medical record. The bowel preparation used was Miralax via split dose instruction. The bowel preparation usedwas bisacodyl tablets via split dose instruction. The scope was passed under direct vision. The Pediatric Colonoscope [id number] was introduced through the anus and advanced to the the cecum, identified by appendiceal orifice and ileocecalvalve. The quality of the bowel preparation was good.Bowel prep was administered using a split dose. Findings: The perianal and digital rectal examinations were normal. The cecum appeared normal. A 2 mm polyp was found in the ascending colon. The polyp was sessile. The polyp was removed with a jumbo cold forceps. Resection andretrieval were complete. The descending colon and transverse colon appeared normal. Many small-mouthed diverticula were found in the sigmoid colon. Internal hemorrhoids were found during retroflexion. The hemorrhoids were small. Electronically signed by Rolan Ramsey M.D. Rolan Ramsey M.D. 11/04/2024 9:42:53 AM Number of Addenda: 0 Note Initiated On: 11/04/2024 8:47 AM Procedure Code(s): --- Professional --- 83951, Colonoscopy, flexible; with biopsy, single or multiple Diagnosis Code(s): --- Professional --- Z86.010, Personal history of colonic polyps K64.8, Other hemorrhoids D12.2, Benign neoplasm of ascending colon K57.30, Diverticulosis of large intestine without perforation orabscess without bleeding CPT copyright 2020 [employer]. All rights reserved. The codes documented in this report are preliminary and upon fermenter helper reviewmay be revised to meet current compliance requirements. Recognized by the [employer] for promoting quality in endoscopy Rolan Ramsey MD ENDOSCOPY PROCEDURES Final Result * Screening Mammogram Bilateral W Gerardo (01/16/2024) Anatomical Region Laterality Modality Breast Bilateral Mammography Generic External Data Provider IMG MAMMO PROCEDU RES Final Result * Hepatitis C antibody (04/29/2021 8:38 AM CDT) Hep C Ab Nonreactive Nonreactive BYRON BORJA ([place]) Comment: Interpretive Data Nonreactive: Antibodies to HCV not detected. Does NOT exclude the possibility of recent exposure to HCV. Equivocal: Equivocal for HCV antibodies. Supplemental molecular testing will be automatically performed to determine infection status in accordance with current CDC screening recommendations. Reactive: Positive for HCV antibodies. This may represent current or past HCV infection. Supplemental molecular testing will be automatically performed to determine current infection status in accordance with current CDC screening recommendations. Interpretive data was last revised on 2019. Testing performed by: [facility], [address] [place] [address], [place]., [address] Blood 04/29/2021 8:38 AM CDT 04/29/2021 1:20 PM CDT Lakeshia Cunningham MD LAB MICROBIOLOGY - NERROLO ORDERABLES Final Result [facility] Department [place] [address] from Last 3 Months or Most Recently Relevant to Health Maintenance Insurance [facility] CHOICE PLUS [facility] CHOICE PLUS Advance Directives For more information, please contact: [phone] * Full Code (Latest Code Status on File) Date Activated Date Inactivated Comments 11/04/2024 8:47 AM 11/04/2024 2:16 PM * Full Code Date Activated Date Inactivated Comments 11/04/2024 8:47 AM 11/04/2024 8:47 AM * Full Code Date Activated Date Inactivated Comments 03/27/2022 12:40 PM 03/27/2022 7:05 PM * Full Code Date Activated Date Inactivated Comments 03/27/2022 12:40 PM 03/27/2022 12:40 PM Care Teams Manager Of Corporate Communications Relationship Specialty Start Date End Date Lakeshia Cunningham MD [address] [place] [address] PCP - General Family Medicine 05/09/21 Yunior Beltran PA [address] [place] [address] Physician Chief Controller Station Orthopedic Surgery 10/01/23
--- OUTSIDE RECORDS SUMMARY | 2025-03-02 08:39 | XMS_ITS | Referral Summary ---
Author Organization [facility] Address [address] [place] [address] Care Team Providers Care Technical Sales Engineer Name Role Phone Lakeshia Cunningham MD Primary Care Provide r Yunior Beltran Unavailable [phone] Allergies Active Allergy Reactions Criticality Noted Date [...] 10/21/2023 Assessment & Plan (10/21/2023 5:07 PM BUSINESS ENTERPRISE OFFICER): New concern Not at goal Likely from recent infection causing low protein Will give lasix for symptomatic relief Ordered cmp, probnp(although low suspicion of heart etiology) urinalyisis albumin cr urine ratio F/u in 2 weeks Recommend compression and elevation Diarrhea 10/14/2023 Assessment & Plan (10/21/2023 5:06 PM BUSINESS ENTERPRISE OFFICER): Resolved after antibiotics Assessment & Plan (10/14/2023 11:09 AM BUSINESS ENTERPRISE OFFICER): New concern Not at goal Likely infectious [...] 08/30/2023 Assessment & Plan (08/30/2023 10:17 AM BUSINESS ENTERPRISE OFFICER): Patient is scheduled for surgery on 10/01/[address] Walton Follow up with ortho as scheduled Continue with sling to left arm as directed by ortho Chronic left shoulder pain 07/01/2023 Assessment & Plan (07/01/2023 8:45 AM BUSINESS ENTERPRISE OFFICER): New concern Not at goal S/p physical [...] (03/19/2018): Added automatically from request for surgery [id number] Resolved Problems Problem Noted Date Diagnosed Date Resolved Date Preoperative clearance 08/30/202305/02 Assessment & Plan (08/30/2023 10:23 AM BUSINESS ENTERPRISE OFFICER): Pt comes in at behest of Dr. [...] Mcg/0.5 mL (12+ YRS)-Blue/Treadwell 05/01/2022 Tdap 05/05/2024 Social History Tobacco Use Types Packs/Day Years [...] on file Legal Sex Female 12:34 PM BUSINESS ENTERPRISE OFFICER Gender Identity Not on file Sexual Orientation Not on file Last Filed Vital Signs Vital Sign Reading [...] 11/04/2024 8:51 AM CDT Plan of Treatment Not on file Medical Devices Implanted Type Area Phone Operator Device Identifier Shelf Expiration Date Model / Serial / Lot Depuy Mitek Healix Advance Br Orthocord 6.5mm 3 Inman Suture Sterile Latex Free [id number] - [id number] Implanted:Qty: 1 on 10/01/2023 by Jean Walton MD at [facility] Left: Shoulder Depuy Mitek 12/16/2026 [id number] / / [id number] [employer] Swivelock C 5.5mm 19.1mm Closed Eyelet Vent Inman Suture Ar-[id number] - [id number] Implanted:Qty: 1 on 10/01/2023 by Jean Walton MD at [facility] Left: Shoulder [employer] Inc 12/16/2026 [id number] / / [id number] [employer] Fiberlink Arthrex Suturetape 1.3mm Tape Suture Nonabsorbable Ar-[id number] - [id number] Implanted:Qty: 2 on 10/01/2023 by Jean Walton MD at [facility] Left: Shoulder [employer] 04/18/2028 [id number] / [...] Ramsey MD - 11/04/2024 8:47 AM CDT [facility] Patient Name: Fern Oliveira Procedure Date: 11/04/2024 8:47 AM Date of : 1960 Admit Type: Outpatient Age: 64 Gender: Female Attending MD: Rolan Ramsey M.D. Room: [facility] ENDOSCOPY ROOM 1 Note Status: Finalized Patient Profile: This is a 64 year old female. History of polyps 3 years ago at outside facility. Reports of the colonoscopy is not available for review. No family history of colon cancer. Procedure: Colonoscopy Indications: Surveillance: Personal history of colonic polyps (unknown histology) on last colonoscopy 3 yearsago, Last colonoscopy: 2019 Referring MD: Lakeshia Cunningham M.D. Providers: Ahmad A. Karadaghy, M.D. Impression: - One 2 mm polyp [...] passed under direct vision. The Pediatric Colonoscope [id number] was introduced through the anus and advanced [...] 8:47 AM Procedure Code(s): --- Professional --- 70710, Colonoscopy, flexible; with biopsy, single or multiple Diagnosis Code(s): --- Professional --- Z86.010, Personal history of colonic polyps K64.8, Other hemorrhoids D12.2, Benign neoplasm of ascending colon K57.30, Diverticulosis of large intestine without perforation orabscess without bleeding CPT copyright 2020 [employer]. All rights reserved. The codes documented in this report are preliminary and upon slasher hand reviewmay be revised to meet current compliance requirements. Recognized by the [employer] for promoting quality [...] last revised on 2019. Testing performed by: [facility], [address] [place] [address], [place]., [address] Blood 04/29/2021 8:38 AM CDT 04/29/2021 1:20 PM CDT Lakeshia Cunningham MD LAB MICROBIOLOGY - GE NERAL ORDERABLES Final Result [facility]) 1 [facility] Department [place] [address] from Last 3 Months or Most Recently Relevant to Health Maintenance Insurance [facility] Advance Directives For more information, please contact: [phone] * Full Code (Latest Code Status on File) Date Activated Date Inactivated Comments 11/04/2024 8:47 AM 11/04/2024 2:16 PM * Full Code Date Activated Date Inactivated Comments 11/04/2024 8:47 AM 11/04/2024 8:47 AM * Full Code Date Activated Date Inactivated Comments 03/27/2022 12:40 PM 03/27/2022 7:05 PM * Full Code Date Activated Date Inactivated Comments 03/27/2022 12:40 PM 03/27/2022 12:40 PM Care Teams Technical Sales Engineer Relationship Specialty Start Date End Date Lakeshia Cunningham MD [address] [place] [address] PCP - General Family Medicine 05/09/21 Yunior Beltran PA [address] [place] [address] Physician Optical Store Manager Orthopedic Surgery 10/01/23
--- OUTSIDE RECORDS SUMMARY | 2025-03-02 08:39 | XMS_ITS | Continuity of Care Document ---
Author Organization [facility] Address [address] [place] [address] [place] [address] Phone Care Team Providers Care Nut Cracker Name Role Phone Tomy Garcia MD Unavailable Unavailable Allergies, Adverse Reactions, Alerts Substance Reaction Status Criticality acetaminophen Active No Information Procedures Procedure Date PREV VISIT, NEW, AGE 40-64 Advance Directives Directive Yes / No Effective Date File Name No Information Encounters Encounter Description Practice Location Reason(s) For Visit Diagnoses Date Provider Providers Copied on Encounter [facility], [address] [place], [id number], tel:[phone] [facility] No Information [address] [facility] [place], [place], [id number] , [place]. tel:[phone] PREV VISIT, NEW, AGE 40-64 [facility], [address] [place], [address], [place] tel:[phone] [facility] Medicine Physical (chief complaint) Dietary surveillance and counselingRoutine Medical ExamRoutine Medical Exam 4 Jose Huitron. [address], [facility] [place], [id number] , [place]. tel:[phone] Family History Family Member Type Diagnosis Age At Onset Brother Problem (finding) Coronary artery disease 55 Mother Problem (finding) Cancer, bone Brother Problem (finding) Stroke 55 Father Problem (finding) Cancer, lung Payers Payer name Insurance type Covered republican ID Authoriza tion(s) No Information Social History Type Description Quantity Date Captured Comments Sex Female Smoking Status No Information Chief Complaint And Reason For Visit No Information Plan Of Treatment Date Type Action Status Referral Ordered: Referral: Gastroentergy. ordered History Of Present Illness Encounter Date Complaint History Of Prese nt Illness No Information Instructions Date Instruction Additional Infor harrison Dietary counseling Related to Di etary surveillance counseling Decrease caloric intake Related to Dietary surveillance counseling Assessments Type Assessment Date No Information
--- OUTSIDE RECORDS SUMMARY | 2025-03-02 08:39 | XMS_ITS | Continuity of Care Document ---
Author Organization [facility] Address [address] [place] [address] Phone Care Team Providers Care Combo Welder Name Role Phone Amauri RIVERA Mindy Unavailable Unavailable Medications Medication Instructions Dosage Effective Dates (start - stop) Status Comments amoxicillin 500 mg tablet take 1 tablet by oral route every 8 hours 500 MG - Active amoxicillin 500 mg capsule take 1 capsule by oral route every 8 hours 500 MG - Active Sims 5 mg-325 mg tablet take 1 tablet by oral route every 6 hours as needed for pain - Active hydrocodone 7.5 mg-acetaminophen 325 mg tablet take 1 tablet by mouth every four hours to relieve pain - Active Procedures Procedure Date OFFICE/OUTPATIENT VISIT, [facility] Panoramic Film Limit Oral Eval-prob Focused Extraction, Erupted Tooth Or Exposed Elza t (Elevati Limit Oral Eval-prob Focused Intraoral Periapical First Jonh 18 Limit Oral Eval-prob Focused Intraoral Periapical First Jonh 18 Extraction, Erupted Tooth Or Exposed Elza t (Elevati Extraction, Erupted Tooth Or Exposed Elza t (Elevati Advance Directives Directive Yes / No Effective Date File Name No Information Encounters Encounter Description Practice Location Reason(s) For Visit Diagnoses Date Provider Providers Copied on Encounter OFFICE/OUTPAT IENT VISIT, [facility] [employer], [address], [place], [place], [id number], [place] tel:[phone] [facility] suicidal (chief complaint) Agoraphobia 0 Amauri Guillen. [address] [place] [address], [id number] , [place]. tel:[phone] Referring Provider: Mindy Capone, [address] [place] [address], [address] . tel:[phone] [facility] [employer], [address], [place], [place], [id number], [place] tel:[phone] [facility] Impacted teethEncounter for dental exam and cleaning w/o abnormal findingsAcute apical periodontitis of pulpal origin 0 Sudheer Triplett. [address] [place], [address], [place]. [phone] Referring Provider: Uziel Jimenez, [address] [place], [address]. tel:[phone] [facility] [employer], [address], [place], [place], [address], [place] tel:[phone] [facility] DEN-Acute apical periodontitis of pulpal origin 8 Rajinder Barahona. [address], [place], [place], [address] , [place]. tel:[phone] Referring Provider: Brooklyn Mojica, [address], [place], [address] . tel:[phone] [facility] [employer], [address], [place], [place], [id number], [place] tel:[phone] [facility] DEN-Acute apical periodontitis of pulpal origin 8 Rajinder Barahona. [address], [place], [place], [address] , [place]. tel:[phone] Referring Provider: Brooklyn Mojica, [address], [place], [address] . tel:[phone] [facility] [employer], [address], [place], [place], [address], tel:[phone] [facility] DEN-Acute apical periodontitis of pulpal origin Nov- 8 Sengheather Sheehan. [address], [place], [id number] , [place]. tel:[phone] Referring Provider: Aguila Mendosa Kobe [address], [place], [address] . tel:[phone] Family History Family Member Type Diagnosis Age At Onset No Information Payers Payer name Insurance type Covered constitution party ID Authorizdaquan villalobos(s) Medicare [id number] ALL OTHERS [id number] [place] Medicaid [place] [id number] Social History Type Description Quantity Date Captured Comments Alcohol Use Details Unknown Caffeine Use Details Unknown Tobacco Use Status No Information Smoking Status No Information Sex Female Chief Complaint And Reason For Visit From encounter dated '01/07/2020 10:15'. suicidal (chief complaint). Description: Patient made statements to dental staff that caused concern patient may have suicidal ideation. Reason For Referral Reason For Referral No Information History Of Present Illness Encounter Date Complaint History Of Prese nt Illness suicidal Patient made sta tements to dental staff that caused concern patient may have suicidal ideation. Functional Status Date Functional Assessmen t No Information Instructions Date Instruction Additional Infor mation Patient evaluated fo r suicidal ideation/intent. Patient states she has no SI at current time and no history of SI. She states she was in significant dental pain and was using hyperbole to state her pain was so bad she could kill herself but was not making a statement about actually having suicidal intent. Patient admits to being very anxious because she is at the dentist office and she rarely leaves her home due to agoraphobia. She states she is being treated for agoraphobia by her PCP and is currently taking Valium and Cymbalta for anxiety/agoraphobia. Offer was extended to treat patient by KIRTI mccray NP and offer declined at this time. Related to Agoraphobia Assessments Type Assessment Date assessment Agoraphobia Mental Status Date Cognitive Assessment Orientation - [place] ed to time, place, person, situation. Patient Care Teams Name Effective Dates (start - stop) Status Members No Information
--- OUTSIDE RECORDS SUMMARY | 2025-03-02 08:39 | XMS_ITS | Clinical Summary ---
Author Organization [facility] Address [address] [place] [address] Care Team Providers Care C Developer Name Role Phone Lakeshia Cunningham MD Primary Care Provide r Source Comments [facility],non-owned Affiliates and Associated Physician Practices is amultiple site organization consisting of ambulatory clinics and hospital sitesin [place], [place], [place] and [place]. This disclosure is being madepursuant to the Care Everywhere program and may not contain all information available regarding this patient. Last updated 18.[facility] Allergies Active Allergy Reactions Criticality Noted Date Comments Acetaminophen Urticaria Medium 11/08/2016 Medications * Be aware that medications may not be up to date on this document. Alwaysverify current medications with the patient. benzonatate (TESSALON) 200 MG capsule Take 1 capsule by mouth 3 times daily as needed for Cough 30 capsule 07/04/2019 Active Social History Tobacco Use Types Packs/Day Years Used Date Smoking Tobacco: Never Smokeless Tobacco: Never Comments No Sex and Gender Information Value Date Recorded Sex Assigned at Not on file Legal Sex Female 10:19 AM CDT Gender Identity Not on file Sexual Orientation Not on file Last Filed Vital Signs Vital Sign Reading Time Taken Comments Blood Pressure 124/76 07/04/2019 4:25 PM PAINT FORMULATOR Pulse 74 07/04/2019 4:25 PM PAINT FORMULATOR Temperature 36.8 C (98.3 F) 07/04/2019 4:25 PM PAINT FORMULATOR Respiratory Rate 16 07/04/2019 4:25 PM PAINT FORMULATOR Oxygen Saturation 98% 07/04/2019 4:25 PM PAINT FORMULATOR Inhaled Oxygen Concentration - - Weight 120.2 kg (265 lb) 07/04/2019 4:25 PM PAINT FORMULATOR Height 162.6 cm (5' 4) 07/04/2019 4:25 PM PAINT FORMULATOR Body Mass Index 45.49 07/04/2019 4:25 PM PAINT FORMULATOR Plan of Treatment Health Maintenance Due Date Last Done Comments COLOGUARD (AGES 45-75) - COL ON CA SCREENING 1960 COLON MONITORING 1960 COLONOSCOPY - COLON CA SCREENING 1962 CT COLONOGRAPHY - COLON CA SCREENING 1960 Colorectal Cancer Screening 1960 FIT - COLON CA SCREENING 1960 FLEX SIG - COLON CA SCREENING 1960 LIPID TESTING 1960 MAMMOGRAM 1960 HIV SCREENING 1977 HEPATITIS C SCREENING 02/02/1980 DTAP/TDAP/TD VACCINES (1 - Tdap) 1981 PNEUMOCOCCAL VACCINE 50+ (1 of 1 - PCV) 02/07/2012 ZOSTER VACCINE (1 of 2) 02/07/2012 SCREENING FOR DIABETES 07/04/2019 COVID-19 VACCINE (1 - 2023-2 5 season) 2024 DEPRESSION SCREENING 08/19/2024 INFLUENZA VACCINE (#1) 2025 Respiratory Syncytial Virus (RSV) Vaccine Pt: or over 60 yrs (1 - 1-dose 75+ series) 2037 HEPATITIS B VACCINE Aged Out No longe r eligible based on patient's age to complete this topic HIB VACCINE Aged Out No longer eligi ble based on patient's age to complete this topic HPV VACCINE Aged Out No longer eligi ble based on patient's age to complete this topic MENINGOCOCCAL (Group B) VACC INE SHARED DECISION-MAKING Aged Out No longer eligibl e based on patient's age to complete this topic MENINGOCOCCAL GROUPS A/C/Y/W VACCINE Aged Out No longer eligible b ased on patient's age to complete this topic Insurance [employer] [facility] Care Teams C Developer Relationship Specialty Start Date End Date Lakeshia Cunningham MD [address] [place] [address] PCP - General 12/11/22
== END 2025-03-02 08:31 | disposition home or self-care (01) ==
LOC: ANHIMG 08:31
PROVIDERS: PCP Family Medicine; Visit Provider Nurse Practitioner Obstetrics & Gynecology
DX: Z12.31 Encounter for screening mammogram for malignant neoplasm of breast (principal)
CPT/HCPCS: 77063; 77067